=== PATIENT | female | born 1935 | race Two or more races ===

== ENCOUNTER → 2019-05-12 | Outpatient (CLI) | payer OTHER ==
[~2019-05-12] MED LIST: CASCARA SAGRAD450 MG PO; COD LIVER OIL1 EACH PO; DICLOFENAC POTA50 MG PO; JANUVIA100 MG PO; METFORMIN HCL500 MG PO; NABUMETONE500 MG PO; NEURONTIN300 MG PO; NEXIUM40 MG/PACK PO; PANADOL MAXIMU500 MG PO; PERCOCET 5/3251 TAB PO; SYNTHROID50 MCG PO
== END | disposition home or self-care (01) ==
LOC: SONOGRAMA 09:01
DX: E04.1 Nontoxic single thyroid nodule (principal)

== ENCOUNTER 2021-05-02 09:49 | Emergency (ER) | payer OTHER ==
[~2021-05-02] VITALS: Ht 157.5 cm; Wt 60.3 kg
== END 2021-05-02 18:42 | disposition home or self-care (01) ==
LOC: ER 09:49
DX: R10.32 Left lower quadrant pain (principal)

== ENCOUNTER → 2021-05-02 | Outpatient (CLI) | payer OTHER | END | disposition home or self-care (01) | LOC: SONOGRAMA 08:25 | PROVIDERS: ATTEND Pathology Anatomic Pathology & Clinical Pathology | DX: E04.1 Nontoxic single thyroid nodule (principal) ==